=== PATIENT | female | born 1990 | race Caucasian/White ===

== ENCOUNTER 2018-11-26 13:46 | Outpatient (CLI) | payer OTHER ==
--- NOTE | 2018-11-26 14:28 | ULT ---
ULTRASOUND LEFT FOREARM: DATE: 11/26/2018. HISTORY: A 28-year-old female with "mass of left forearm". TECHNIQUE: High frequency transducer used to evaluate superficial soft tissues in the region of palpable lump. FINDINGS: Within the subcutaneous fat, there is a 0.9 x 0.6 x 0.7 cm mildly hyperechoic lesion without acoustic shadowing, and no internal blood flow demonstrated by Doppler. IMPRESSION: Small lesion in the superficial, subcutaneous fat is nonspecific, but may represent a focus of fat ne crosis. POS: [facility]
--- NOTE | 2018-11-26 14:30 | ULT ---
LEFT AXILLARY ULTRASOUND: COMPARISON: None. HISTORY: Left axillary pain. TECHNIQUE: Multiplanar, asencio scale, and color Doppler images were obtained in a left axillary ultrasound. FINDINGS: A normal-appearing lymph node is seen in the left axilla. This has a normal-appearing fatty hilum. No solid mass or fluid collection is seen. IMPRESSION: Normal left axillary ultrasound. POS: [facility]
== END 2018-11-26 13:47 | disposition home or self-care (01) ==
LOC: BICULT 13:46
PROVIDERS: ATTEND Internal Medicine
DX: R22.32 Localized swelling, mass and lump, left upper limb (principal); L98.9 Disorder of the skin and subcutaneous tissue, unspecified
CPT/HCPCS: 76999

== ENCOUNTER 2021-01-25 07:08 | Outpatient (CLI) | payer OTHER | END 2021-01-25 07:09 | disposition home or self-care (01) | LOC: BICULT 07:08 | PROVIDERS: ATTEND Internal Medicine | DX: R74.01 Elevation of levels of liver transaminase levels (principal); K76.89 Other specified diseases of liver | CPT/HCPCS: 76705 ==

== ENCOUNTER 2023-04-29 08:11 | Outpatient (CLI) | payer BC | END 2023-04-29 08:12 | disposition home or self-care (01) | LOC: BICULT 08:11 | PROVIDERS: ATTEND Internal Medicine | DX: R74.01 Elevation of levels of liver transaminase levels (principal); R16.0 Hepatomegaly, not elsewhere classified; K76.0 Fatty (change of) liver, not elsewhere classified | CPT/HCPCS: 76705 ==